=== PATIENT | male | born 1985 | race Caucasian/White ===

== ENCOUNTER 2022-04-01 23:45 | Inpatient (IN) ==
--- NOTE | 2022-04-02 00:43 | Emergency Department Note ---
Impression & Plan Acute UTI, Suicidal ideation Admit to 3 S. ED Provider Note NAME: SHIKHA FUNEZ AGE: 36 SEX: M ARRIVES VIA: Ambulance INFORMANT: Patient ED PROVIDER(S): Helga Murrell DO CHIEF COMPLAINT: Suicidal ideation PLAN: Disposition: Admit to 3 S. Condition: Stable MEDICAL DECISION MAKING: This is a 36-year-old male patient with history of anxiety and depression who called 911 tonight as he was feeling suicidal with a plan to hang himself. The patient was willing to admit himself voluntarily for inpatient psychiatric care. He does have a history of depression and anxiety but has also been feeling somewhat paranoid and delusional. He was noted to be tachycardic on physical exam with some signs of sunburn and slight dehydration. He received a liter of normal saline solution here in the emergency department and was drinking clear liquids. His heart rate came down nicely after fluid. He had evidence of urinary tract infection on urinalysis. He was given a gram of IV Rocephin prior to admission to 3 S. Triage Nursing notes reviewed and agree with them. Prior medical records reviewed Vital Signs: reviewed and remarkable for tachycardia Differential diagnosis: Medication noncompliance, drug abuse, suicidal ideation, mood disorder, thought disorder ER treatment provided: Normal saline bolus IV Rocephin Diagnostics interpreted by me: Laboratory studies: See below HPI: 36/M arrives for evaluation of suicidal ideation. The patient has a history of anxiety and depression and has not been taking his medications. He had thoughts tonight of pain himself in his motel room. Patient has had previous inpatient psychiatric admissions. He was admitted to the [facility] just a couple of months ago and discharged from there on trazodone and Seroquel. He explains that he has not been taking those 2 medications recently and has been feeling delusional with paranoia. Patient feels increasingly depressed specifically about his father being hospitalized in [place] for the past 2 and half weeks with no specific diagnosis and is unable to visit him as he has no transportation. ROS: See above HPI for pertinent positives & negatives. A total of 10 systems reviewed and were otherwise negative. PAST MEDICAL HISTORY:Depression/anxiety PAST SURGICAL HISTORY:See Below FAMILY HISTORY:See Below SOCIAL HISTORY:Patient abuses amphetamines occasionally most recent use was 2 days ago; he works in [employer]. HOME MEDICATIONS:Seroquel and trazodone ALLERGIES:None VITALS:See Below PHYSICAL EXAMINATION: HEENT: Head - normocephalic and atraumatic. Pupils are equal, round, and reactive to light. Extraocular eye muscles are intact, and sclera are anicteri c. Nose - moist nasal mucosa without discharge. Mouth - moist buccal mucosa. Oropharynx is nonerythematous and there is no tonsillar exudate or edema noted. Neck: Supple; no cervical lymphadenopathy Heart: Tachycardic rate and rhythm. There is a normal S1 and S2 with no murmurs, clicks, or gallops appreciated. Lungs: Clear to auscultation bilaterally with no wheezes, rales, or rhonchi. Abdomen: Soft, completely nontender, nondistended, with good bowel sounds. There are no palpable pulsatile masses or hepatosplenomegaly. There is no guarding, rigidity, or rebound noted. Extremities: No evidence of cyanosis, clubbing, or edema. There are easily palpable peripheral pulses. Skin: warm and dry with good turgor and no rashes. Psych: The patient appears slightly depressed with a normal thought process. He does not appear acutely paranoid. He does admit to suicidal thoughts with a plan to hang himself. ED COURSE: Times/Reassessments: 0030: The patient was evaluated in room A5. Complete history and physical was performed. Laboratory studies were drawn as above. The patient was noted to be tachycardic and was bolused with 1 L normal saline solution. He gave a urine specimen which appeared to be infected. The patient was given a gram of IV Rocephin. The patient is felt to be medically cleared. He was evaluated by 3 Miguel Murrell DO Past Med/Surg History Social History Smoking Status: Current some day smoker Preferred Language: [place] Feels Safe at Home: Yes Allergies Allergies Allergy/AdvReac Type Severity Reaction Status Date / Time No Known Allergies Allergy Unverified 04/02/22 00:06 Home Meds Home Medications Medication Instructions Recorded Confirmed Seroquel 04/02/22 Suboxone 04/02/22 trazodone 04/02/22 Results & Data (ED) Vital Signs Vital Signs - 24 hr 04/01/22 23:50 04/02/22 01:30 Temperature 36.8 C Temperature Source Oral Pulse Rate 128 H Pulse Rate [Left Finger] 130 H Pulse Rhythm Regular Pulse Strength Normal Respiratory Rate 17 16 Respiratory Effort / Characteristics Non-Labored Spontaneous Non-Labored Spontaneous Respiratory Depth Normal Normal Respiratory Pattern Regular Blood Pressure 121/95 Blood Pressure [Left Arm] 163/117 H Blood Pressure Mean 103 Blood Pressure Mean [Left Arm] 132 Blood Pressure Position Sitting Pulse Oximetry 99 98 Oxygen Delivery Method Room Air Room Air Sepsis Recent Fever Within 48 Hours No Sepsis New/Unexplained Change in Mental Status N/A Sepsis Action Taken by Nursing No Action Required Laboratory Data Result diagrams: 04/02/22 00:48 04/02/22 00:48 Lab Results 04/01/22 04/01/22 04/01/22 Range/Units 23:56 23:56 23:56 WBC (4.8-10.8) K/uL RBC (4.7-6.1) M/uL Hgb (14.0-18.0) g/dL Hct (42-52) % MCV (80-100) fL MCH (25-34) pg MCHC (32-36) g/dL RDW Std Deviation (36.4-46.3) fL RDW Coeff of Libby (11.5-14.5) % Plt Count (130-400) K/uL MPV (7.4-10.4) fL Immature Gran % (Auto) % Neut % (Auto) % Lymph % (Auto) % Sunflower % (Auto) % Eos % (Auto) % Baso % (Auto) % Neut # (Auto) (1.4-6.5) K/uL Lymph # (Auto) (1.2-3.4) K/uL Sunflower # (Auto) (0.11-0.59) K/uL Eos # (Auto) (0-0.5) K/uL Baso # (Auto) (0-0.2) K/uL Immature Gran # (Auto) (0.00-0.02) K/uL Sodium (136-145) mmol/L Potassium (3.5-5.1) mmol/L Chloride (98-107) mmol/L Carbon Dioxide (21-32) mmol/L Anion Gap (3-11) BUN (6-23) mg/dl Creatinine (0.6-1.4) mg/dl Est Cr Clr Drug Dosing ml/min Est GFR ( Amer) ml/min Est GFR (Non-Af Amer) ml/min BUN/Creatinine Ratio (10-20) Glucose (70-99(Fasting)) mg/dl Calcium (8.5-10.1) mg/dl Total Bilirubin (0.2-1.0) mg/dl AST (13-39) U/L ALT (7-52) U/L Alkaline Phosphatase (34-104) U/L Total Protein (6.0-8.3) gm/dl Albumin (3.4-5.0) gm/dl Globulin (2.5-4.0) gm/dl Albumin/Globulin Ratio (0.9-2) TSH (0.300-4.500) uIu/ml Urine Color Dark Yellow Urine Appearance Turbid A (Clear) Urine pH 5.0 (4.5-7.5) Ur Specific [place] 1.031 H (1.000-1.030) Urine Protein 2+ H (Negative) Urine Glucose (UA) Negative (Negative) Urine Ketones 1+ H (Negative) Urine Blood Negative (Negative) Urine Nitrite Positive A (Negative) Urine Bilirubin 2+ H (Negative) Urine Urobilinogen Negative (Negative) Ur Leukocyte Esterase Trace H (Negative) Urine WBC (Auto) 5-10 H (0-5) /hpf Urine RBC (Auto) 10-30 H (0-4) /hpf U Hyaline Cast (Auto) >30 H (0-5) /lpf U Epithel Cells (Auto) >30 H (0-5) /lpf Urine Bacteria (Auto) 1+ H (Negative) Ur Renal Epithelial Cell Not Reportable Urine Crystals Not Reportable Calcium Oxalate Crystal Present A (None Prsent) Salicylates (3.0-30) mg/dl Urine Opiates Screen Neg (Neg) Ur Methadone, Qual Neg (Neg) Acetaminophen (10-30) ug/ml Urine Barbiturates Neg (Neg) Ur Phencyclidine (PCP) Neg (Neg) U Amphetamin/Meth Scrn Pos H (Neg) MDMA (Ecstasy) Screen Pos H (Neg) U Benzodiazepines Scrn Neg (Neg) Ur Cocaine Metabolite Neg (Neg) U Marijuana (THC) Screen Pos H (Neg) Ethyl Alcohol mg/dL (<10.0) mg/dl SARS-CoV-2, RNA, NAAT NEGATIVE (NEGATIVE) 04/02/22 04/02/22 04/02/22 Range/Units 00:48 00:48 00:48 WBC 8.05 (4.8-10.8) K/uL RBC 5.15 (4.7-6.1) M/uL Hgb 17.3 (14.0-18.0) g/dL Hct 48.0 (42-52) % MCV 93.2 (80-100) fL MCH 33.6 (25-34) pg MCHC 36.0 (32-36) g/dL RDW Std Deviation 49.2 H (36.4-46.3) fL RDW Coeff of Libby 14.5 (11.5-14.5) % Plt Count 244 (130-400) K/uL MPV 9.8 (7.4-10.4) fL Immature Gran % (Auto) 0.1 % Neut % (Auto) 75.9 % Lymph % (Auto) 12.8 % Sunflower % (Auto) 11.2 % Eos % (Auto) 0.0 % Baso % (Auto) 0.0 % Neut # (Auto) 6.11 (1.4-6.5) K/uL Lymph # (Auto) 1.03 L (1.2-3.4) K/uL Sunflower # (Auto) 0.90 H (0.11-0.59) K/uL Eos # (Auto) 0.00 (0-0.5) K/uL Baso # (Auto) 0.00 (0-0.2) K/uL Immature Gran # (Auto) 0.01 (0.00-0.02) K/uL Sodium 137 (136-145) mmol/L Potassium 3.6 (3.5-5.1) mmol/L Chloride 97 L (98-107) mmol/L Carbon Dioxide 28 (21-32) mmol/L Anion Gap 12 H (3-11) BUN 17 (6-23) mg/dl Creatinine 1.56 H (0.6-1.4) mg/dl Est Cr Clr Drug Dosing 63.9 ml/min Est GFR ( Amer) 65.7 ml/min Est GFR (Non-Af Amer) 56.7 ml/min BUN/Creatinine Ratio 10.9 (10-20) Glucose 95 (70-99(Fasting)) mg/dl Calcium 9.9 (8.5-10.1) mg/dl Total Bilirubin 1.0 (0.2-1.0) mg/dl AST 53 H (13-39) U/L ALT 27 (7-52) U/L Alkaline Phosphatase 96 (34-104) U/L Total Protein 8.9 H (6.0-8.3) gm/dl Albumin 5.1 H (3.4-5.0) gm/dl Globulin 3.8 (2.5-4.0) gm/dl Albumin/Globulin Ratio 1.3 (0.9-2) TSH 2.999 (0.300-4.500) uIu/ml Urine Color Urine Appearance (Clear) Urine pH (4.5-7.5) Ur Specific [place] (1.000-1.030) Urine Protein (Negative) Urine Glucose (UA) (Negative) Urine Ketones (Negative) Urine Blood (Negative) Urine Nitrite (Negative) Urine Bilirubin (Negative) Urine Urobilinogen (Negative) Ur Leukocyte Esterase (Negative) Urine WBC (Auto) (0-5) /hpf Urine RBC (Auto) (0-4) /hpf U Hyaline Cast (Auto) (0-5) /lpf U Epithel Cells (Auto) (0-5) /lpf Urine Bacteria (Auto) (Negative) Ur Renal Epithelial Cell Urine Crystals Calcium Oxalate Crystal (None Prsent) Salicylates (3.0-30) mg/dl Urine Opiates Screen (Neg) Ur Methadone, Qual (Neg) Acetaminophen (10-30) ug/ml Urine Barbiturates (Neg) Ur Phencyclidine (PCP) (Neg) U Amphetamin/Meth Scrn (Neg) MDMA (Ecstasy) Screen (Neg) U Benzodiazepines Scrn (Neg) Ur Cocaine Metabolite (Neg) U Marijuana (THC) Screen (Neg) Ethyl Alcohol mg/dL (<10.0) mg/dl SARS-CoV-2, RNA, NAAT (NEGATIVE) 04/02/22 04/02/22 Range/Units 00:48 00:48 WBC (4.8-10.8) K/uL RBC (4.7-6.1) M/uL Hgb (14.0-18.0) g/dL Hct (42-52) % MCV (80-100) fL MCH (25-34) pg MCHC (32-36) g/dL RDW Std Deviation (36.4-46.3) fL RDW Coeff of Libby (11.5-14.5) % Plt Count (130-400) K/uL MPV (7.4-10.4) fL Immature Gran % (Auto) % Neut % (Auto) % Lymph % (Auto) % Sunflower % (Auto) % Eos % (Auto) % Baso % (Auto) % Neut # (Auto) (1.4-6.5) K/uL Lymph # (Auto) (1.2-3.4) K/uL Sunflower # (Auto) (0.11-0.59) K/uL Eos # (Auto) (0-0.5) K/uL Baso # (Auto) (0-0.2) K/uL Immature Gran # (Auto) (0.00-0.02) K/uL Sodium (136-145) mmol/L Potassium (3.5-5.1) mmol/L Chloride (98-107) mmol/L Carbon Dioxide (21-32) mmol/L Anion Gap (3-11) BUN (6-23) mg/dl Creatinine (0.6-1.4) mg/dl Est Cr Clr Drug Dosing ml/min Est GFR ( Amer) ml/min Est GFR (Non-Af Amer) ml/min BUN/Creatinine Ratio (10-20) Glucose (70-99(Fasting)) mg/dl Calcium (8.5-10.1) mg/dl Total Bilirubin (0.2-1.0) mg/dl AST (13-39) U/L ALT (7-52) U/L Alkaline Phosphatase (34-104) U/L Total Protein (6.0-8.3) gm/dl Albumin (3.4-5.0) gm/dl Globulin (2.5-4.0) gm/dl Albumin/Globulin Ratio (0.9-2) TSH (0.300-4.500) uIu/ml Urine Color Urine Appearance (Clear) Urine pH (4.5-7.5) Ur Specific [place] (1.000-1.030) Urine Protein (Negative) Urine Glucose (UA) (Negative) Urine Ketones (Negative) Urine Blood (Negative) Urine Nitrite (Negative) Urine Bilirubin (Negative) Urine Urobilinogen (Negative) Ur Leukocyte Esterase (Negative) Urine WBC (Auto) (0-5) /hpf Urine RBC (Auto) (0-4) /hpf U Hyaline Cast (Auto) (0-5) /lpf U Epithel Cells (Auto) (0-5) /lpf Urine Bacteria (Auto) (Negative) Ur Renal Epithelial Cell Urine Crystals Calcium Oxalate Crystal (None Prsent) Salicylates < 3.0 L (3.0-30) mg/dl Urine Opiates Screen (Neg) Ur Methadone, Qual (Neg) Acetaminophen < 3 L (10-30) ug/ml Urine Barbiturates (Neg) Ur Phencyclidine (PCP) (Neg) U Amphetamin/Meth Scrn (Neg) MDMA (Ecstasy) Screen (Neg) U Benzodiazepines Scrn (Neg) Ur Cocaine Metabolite (Neg) U Marijuana (THC) Screen (Neg) Ethyl Alcohol mg/dL < 10.0 (<10.0) mg/dl SARS-CoV-2, RNA, NAAT (NEGATIVE) Administered Medications Discontinued Medications Sodium Chloride (Nss 1000ml) 1,000 mls @ 999 mls/hr IV .[id number] ONE Stop: 04/02/22 02:58 Last Infusion: 04/02/22 03:52 Dose: 0 mls/hr Documented by: [id number] Admin: 04/02/22 02:29 Dose: 999 mls/hr Documented by: [id number] Ceftriaxone Sodium (Rocephin) 1,000 mg in 50 mls @ 100 mls/hr IV NOW STA Stop: 04/02/22 02:27 Last Infusion: 04/02/22 03:01 Dose: 0 mls/hr Documented by: [id number] Admin: 04/02/22 02:29 Dose: 100 mls/hr Documented by: [id number] Discharge Plan Visit Data Chief Complaint: Mental Health Evaluation Stated Complaint: MENTAL HEALTH EVAL/SUICIDAL IDEATION ED Provider: Helga Murrell Discharge Problem: Acute UTI, Suicidal ideation
[2022-04-02 00:45] LABS: Appearance Urine Turbid (Clear); Blood Urine Negative (Negative); Color Urine Dark Yellow; Epithelial Cell Urine Auto >30 /lpf (0-5); Glucose Urine UA Negative (Negative); Ketones Urine 1+ (Negative); Leukocyte Esterase Urine Trace (Negative); Nitrite Urine Positive (Negative); Protein Urine 2+ (Negative); Specific Gravity Urine 1.031 (1.000-1.030); Urobilinogen Urine Negative (Negative)
[2022-04-02 00:55] LABS: Bilirubin Urine 2+ (Negative)
[2022-04-02 01:03] LABS: Calcium Oxalate Crystals Urine Present (None Prsent); Cast Urine Automated >30 /lpf (0-5)
[2022-04-02 01:04] LABS: Bacteria Urine Automated 1+ (Negative)
[2022-04-02 01:04] LABS: Hemoglobin 17.3 g/dL (14.0-18.0); Immature Granulocytes # (auto) 0.01 K/uL (0.00-0.02); Immature Granulocytes % (auto) 0.1 %; Lymphocytes # (auto) 1.03 K/uL (1.2-3.4); Lymphocytes % (auto) 12.8 %; Mean Corpuscular Hemoglobin 33.6 pg (25-34); Mean Corpuscular Volume 93.2 fL (80-100); Mean Platelet Volume 9.8 fL (7.4-10.4); Monocytes % (auto) 11.2 %; Neutrophils # (auto) 6.11 K/uL (1.4-6.5); Neutrophils % (auto) 75.9 %; Platelet Count 244 K/uL (130-400); RDW Coefficient of Variation 14.5 % (11.5-14.5); RDW Standard Deviation 49.2 fL (36.4-46.3); Red Blood Count 5.15 M/uL (4.7-6.1); White Blood Count 8.05 K/uL (4.8-10.8)
[2022-04-02 01:16] LABS: Amphetamines+Metham, Urine Pos (Neg); Barbiturates, Urine Neg (Neg); Benzodiazepine, Urine Neg (Neg); Cocaine, Urine Neg (Neg); MDMA (Ecstacy), Urine Pos (Neg); Methadone, Urine Neg (Neg); Opiate, Urine Neg (Neg); Phencyclidine, Urine Neg (Neg)
[2022-04-02 01:20] LABS: Albumin Globulin Ratio 1.3 (0.9-2); Albumin Level 5.1 gm/dl (3.4-5.0); BUN Creatinine Ratio 10.9 (10-20); Calcium 9.9 mg/dl (8.5-10.1); Creatinine Clr Calc Pharmacy 63.9 ml/min; Est GFR (African American) 65.7 ml/min; Est GFR (Non-African American) 56.7 ml/min; Globulin 3.8 gm/dl (2.5-4.0); Potassium 3.6 mmol/L (3.5-5.1); Total Protein 8.9 gm/dl (6.0-8.3)
[2022-04-02 01:21] LABS: Acetaminophen < 3 ug/ml (10-30); Salicylate < 3.0 mg/dl (3.0-30)
[2022-04-02] MEDS ORDERED: cefTRIAXone SODIUM 1,000 MG/50 ML BAG IV STA (01:58)
[2022-04-02] MEDS ORDERED: SODIUM CHLORIDE 0.9% 1000ML 1,000 ML IV ONE (01:58)
[2022-04-02] MEDS ORDERED: LORazepam 1 MG TAB PO PRN (05:28)
[2022-04-02] MEDS ORDERED: OLANZapine 5 MG TABLET PO PRN (05:30)
[2022-04-02] MEDS ORDERED: hydrOXYzine HCl 25 MG TAB PO PRN (07:12)
[2022-04-02] MEDS ORDERED: SODIUM CHLORIDE 0.65% NA SOLN 45 ML (OCEAN) PRN (07:12)
[2022-04-02] MEDS ORDERED: BISMUTH SUBSALICYLATE LIQD 236 ML PO PRN (07:12)
[2022-04-02] MEDS ORDERED: ACETAMINOPHEN 325 MG TAB PO PRN (07:12)
[2022-04-02] MEDS ORDERED: ALUMINUM/MAGNESIUM SUSP 30 ML UDC PO PRN (07:12)
[2022-04-02] MEDS ORDERED: MAGNESIUM HYDROXIDE SUSP 30 ML UDC PO PRN (07:12)
--- NOTE | 2022-04-02 08:45 | History & Physical ---
Date of Service April 02, 2022 Impression / Recommendations Impression The patient is a 36 year old man with a history of anxiety, depression, BPD with multiple prior suicide attempts (last 9 years ago) and polysubstance use disorder (methamphetamine, suboxone, alcohol) who was admitted for SI with plan and psychosis. Diagnostically consistent with MDD with anxious features and substance-induced mood symptoms and substance-induced psychosis given UDS is positive for methamphetamine (confirmation screening pending but hasn't been taking any medications and he confirms recent relapse). BPAD mixed episode or MDD with psychotic features very unlikely given already showing signs of psy chosis resolution since ED presentation. No evidence for acute ian. The patient is deemed unstable and requires psychiatric hospitalization for diagnostic clarification, safety and stabilization, medication management and development of further coping skills. Discussed medication treatment options in detail. Discussed risks, benefits and alternatives including SSRIs and trazodone. Patient would like to start and consented to sertraline and trazodone for depression, anxiety and insomnia. Reviewed side effects including but not limited to: GI, ORDAZ, sexual side effects, and counseled on black box warning of potential for emergence of or increased SI and need to let staff know should this occur or should they feel unsafe. Also discussed importance of seeking emergency care following discharge if this side effect occurs in the future. The patient's audit score and use history suggests problematic substance use. Brief intervention was offered and accepted. Intervention was greater than 5 minutes in length and included assessing readiness to quit, advice on how to reduce or abstain and to set a specific goal for this hospitalization. canvas worker apprentice will also assist in anticipating barriers to reducing or abstaining from substance use and in problem-solving for solutions to those problems while arranging for referral to appropriate treatment. The patient is in contemplative stage with regards to transtheoretical model of change. The patient is advised to decrease consumption due to depressant effects and risk of interaction with prescription medications. The patient agreed to try to stop drinking and begin treatment with a suboxone clinic and will be provided with recovery materials to continue to educate self on how to cope with their condition without using substances. Discussed that most significant modifiable risk factor for treating psychosis and mood symptoms and reducing acute and chronic risk of self-harm is substance use treatment. Recommended residential treatment which he declines at this time. He will consider option for intensive outpatient treatment or dual diagnosis therapy and NA/AA. He declines MAT for alcohol use at this time-reviewed acamprosate could be an option, naltrexone contraindicated as he uses suboxone intermittently. Encourage re-establishment with suboxone MAT clinic which he agrees to. (1) Mixed anxiety depressive disorder: (2) Suicidal ideation: (3) Substance induced mood disorder: (4) Substance-induced psychotic disorder: (5) Acute UTI: (6) Opioid use disorder: (7) Alcohol use disorder, moderate, dependence: (8) Methamphetamine use disorder, mild: 04/02/22: The patient was admitted to the [facility] ([facility] mental [facility] unit) on q15 min checks (behavioral with suicide precautions) for safety. The patient will participate in group, recreational, and milieu therapies and will be offered additional individual and family sessions as clinically appropriate. -AWSS with thiamine and folic acid -Monitor withdrawal using COWS (Clinical Opiate Withdrawal Scale). Clonidine: 0.1 mg po q6h prn (hold for SBP<100). Symptomatic treatment: dicyclomine 20mg q6h prn abdominal cramps, loperamide 2mg q6h prn diarrhea, ibuprofen 600 mg q6h prn pain, hydroxyzine 25mg q4h prn anxiety -Start sertraline 25 mg qd -Start trazodone 50mg qhs prn -Macrobid 100mg BID for UTI Inventory Assets Strengths: motivated to get help, relationship with father, working Needs: additional coping skills, substance use treatment, outpatient services Suicide Risk Level Suicide Risk Level: High (q15 min suicide checks) Suicide Risk Level Comments: High-Moderate acute risk on q15 minute checks as he had SI with plan prior to admission and hx of multiple prior attempts but feels safe in the hospital, has current SI but denies any plan nor intent, denies AH, and is able to safety contract on the unit,hasreasonable insight and judgment, demonstrating be havioral regulation, and theyfeel they can alert nursing should thoughts of SI re-occuror intensify to the point that they feel unable to remain safe without additional support. 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 Chief Complaint "I'm really worried about my dad". History of Present Illness Yoni presents for psychiatric admission for worsening anxiety, intensifying SI with a plan to hang himself and new auditory hallucinations in the context of multiple psychosocial stressors including homelessness, his father being hospitalized for the last month, and relapse of methamphetamine use. He called 911 was brought to the ED. He received treatment in the ED for a UTI and for dehydration and sunburn. He relapsed on methamphetamine two days ago, after about 4-5 months of sobriety, and takes suboxone, 16mg, that he buys recreationally from a friend as frequently as he can get it (has not used any other opioids or heroin in >1 year) but UDS was also positive for MDMA. He states this could have been mixed with the methamphetamine that he took. He views alcohol as his biggest substance use issue especially since it causes him to end up using other substances and to make poor decisions. He drinks on average a 6pack of beer and often up to 1/5 of whiskey most nights. He is currently living in a motel and is on pre-trial probation for a DUI. Last night on arrival to the ED he reported auditory hallucinations of voices of ghosts and thought he had superhuman hearing and was responding to internal stimuli. Today he denies any auditory hallucinations and agrees that this can occur when he uses substances but is otherwise atypical for him. States he can communicate without words with his grandmother, as he believes she can sense his emotions, who a few years ago and with whom he had been very close. No other history of psychosis in the past. He describes feeling more depressed but struggles to describe this and how it impacts him though can note sleep and appetite changes and increased irritability with low mood. He denies hopelessness, helplessness, anhedonia. Feels his biggest concern recently has been worsening anxiety with heart racing and increased worrying as well as intensifying SI over the last week. Identifies family as a significant deterrent and the reason he wanted to get help. Today he continues to feel anxious but feels the SI has "volume is down a bit" and denies any plans nor intent in the hospital setting. Psychiatric ROS notable for denial of current or past symptoms of ian (had decreased sleep during times when using substances but never during periods of sobriety), nor psychosis outside of periods of active substance use, nor aggression nor self-harm nor trauma/PTSD. Past Psychiatric History Current Psychiatric Diagnosis: Borderline Personality; Bipolar; Anxiety; depression Outpatient Services: none Previous Psych Admissions: [facility] in Nov 2021 , previously at [facility] in [facility] Do You Have Access To A Gun?: No History of Previous Suicide Attempt: Yes (5-6 times, last attempt was 9 years ago all via overdose ) Past Medication Trials: seroquel, trazodone, mirtazapine; cannot recall any past SSRI nor mood stabilizer trials, has been prescribed suboxone in the past Past Head Trauma/Neuro History History of Concussion/Seizure: No Allergies Allergy/AdvReac Type Severity Reaction Status Date / Time No Known Allergies Allergy Unverified 04/02/22 00:06 Home Medications Medication Instructions Recorded Confirmed Type Seroquel 04/02/22 History trazodone 04/02/22 History Family History Family History of: Depression, Anxiety and Suicide Attempts Family Mental Health History Comment: Maternal side - MH Substance/Alcohol - both brother and sister- attempted suicide both during periods of substance use Alcohol History Hx of Alcohol Use Over the Past 12 Months: Yes (6 pack - five days week) AUDIT Total Score: 31 Smoking Use Have You Smoked or Used Tobacco Products in the Last 30 Days: Yes tobacco type: smokeless tobacco Smoking Status: Unknown if ever smoked Smoking packs per day: 0 Substance History Hx of Prescription Med Misuse Over the Past 12 Months: Yes (Suboxone from street) Hx of Over the Counter Med Misuse Over the Past 12 Months: No Hx of Inhalent Misuse Over the Past 12 Months: No Hx of Organic Substance Use Over the Past 12 Months: Yes (+THC - uses daily, 1gram/week) Hx of Illegal Substances/Street Drug Use Over Past 12 Months: No Problems as a Result of Past Substance Use: Arrested and Life out of Control Problems as a Result of Past Substance Use Comments: DUI x2 UDS positive for amphetamine, MDMA, THC; confirmation pending Personal History Living Arrangements: Hotel Childhood: Grew up in [place], biological mother lives in [place] and he was raised primarily by his father and step-mother, remains close with his parents and siblings Highest Grade Completed: G.E.D. 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) Marital Status: Single Number Of Children: 0 Current Legal Problems: Yes (on probation for prior DUIs) Hx Legal Problems: Yes Hx Traumatic Life Events: No Patient History Medical History (Updated 04/02/22 @ 13:25 by Aure Alas MD) Alcohol use disorder, moderate, dependence Depression Opioid use disorder Other and unspecified reactive psychosis Polysubstance (including opioids) dependence, daily use Social History Smoking Status: Unknown if ever smoked Preferred Language: Belarusian Communication Ability: Effective Wrecker Driver Required: No Feels Safe at Home: Yes Assistive Devices: None Review of Systems Review of Systems: All systems reviewed & are unremarkable except as noted in HPI & below Physical Exam Psychiatric: Orientation: alert and oriented x 3 Apperance: appropriately dressed and appropriately groomed Eye Contact: good eye contact Motor Behavior: steady gait and station and no abnormal motor movements Speech: normal rate/rhythm/volume of speech Affect: + constricted affect Mood: + depressed mood and + anxious mood Thought Process: + concrete thought process Thought Content: reality based without delusions and + delusions (possible related to communication with grandmother vs grief coping mechanis) Suicidal Thoughts: denies suicidal plan and denies suicidal intent; + reports suicidal thoughts (ongoing SI but no intent nor plan and feels safe in the hospital) Homicidal Thoughts: denies homicidal thoughts Hallucinations: no auditory hallucinations and no visual hallucinations Cognition: recent memory grossly intact, remote memory grossly intact and language grossly intact; + attention not intact Estimated Intelligence: consistent with education level Insight: + limited insight Judgement: + limited judgement Vital Signs (Past 24 Hours): Last Vital Signs Temp 37.4 C 04/02/22 06:04 Pulse 123 H 04/02/22 06:04 Resp 18 04/02/22 06:04 BP 146/100 H 04/02/22 06:04 Pulse Ox 99 04/02/22 03:22 Exam Statement: A physical exam was performed in the ED by Dr. Murrell for the purposes of medical clearance. I accept that physical as correct and adequate for the purposes of the inpatient physical exam. Results & Data [facility] Laboratory Results Laboratory Results - last 24 hr 04/01/22 04/01/22 04/01/22 23:56 23:56 23:56 WBC RBC Hgb Hct MCV MCH MCHC RDW Std Deviation RDW Coeff of Libby Plt Count MPV Immature Gran % (Auto) Neut % (Auto) Lymph % (Auto) [place] % (Auto) Eos % (Auto) Baso % (Auto) Neut # (Auto) Lymph # (Auto) [place] # (Auto) Eos # (Auto) Baso # (Auto) Immature Gran # (Auto) Sodium Potassium Chloride Carbon Dioxide Anion Gap BUN Creatinine Est Cr Clr Drug Dosing Est GFR ( Amer) Est GFR (Non-Af Amer) BUN/Creatinine Ratio Glucose Calcium Total Bilirubin AST ALT Alkaline Phosphatase Total Protein Albumin Globulin Albumin/Globulin Ratio TSH Urine Color Dark Yellow Urine Appearance Turbid A Urine pH 5.0 Ur Specific [place] 1.031 H Urine Protein 2+ H Urine Glucose (UA) Negative Urine Ketones 1+ H Urine Blood Negative Urine Nitrite Positive A Urine Bilirubin 2+ H Urine Urobilinogen Negative Ur Leukocyte Esterase Trace H Urine WBC (Auto) 5-10 H Urine RBC (Auto) 10-30 H U Hyaline Cast (Auto) >30 H U Epithel Cells (Auto) >30 H Urine Bacteria (Auto) 1+ H Ur Renal Epithelial Cell Not Reportable Urine Crystals Not Reportable Calcium Oxalate Crystal Present A Salicylates Urine Opiates Screen Neg Ur Methadone, Qual Neg Acetaminophen Urine Barbiturates Neg Ur Phencyclidine (PCP) Neg U Amphetamines Confirm U Amphetamin/Meth Scrn Pos H U Methamphetamin Confrm Urine MDEA MDMA (Ecstasy) Screen Pos H MDMA Urine MDMA U Benzodiazepines Scrn Neg Ur Cocaine Metabolite Neg U Marijuana (THC) Screen Pos H U Marijuana THC Carboxy Drug Screen Comment Ethyl Alcohol mg/dL SARS-CoV-2, RNA, NAAT NEGATIVE 04/01/22 04/02/22 04/02/22 23:56 00:48 00:48 WBC 8.05 RBC 5.15 Hgb 17.3 Hct 48.0 MCV 93.2 MCH 33.6 MCHC 36.0 RDW Std Deviation 49.2 H RDW Coeff of Libby 14.5 Plt Count 244 MPV 9.8 Immature Gran % (Auto) 0.1 Neut % (Auto) 75.9 Lymph % (Auto) 12.8 [place] % (Auto) 11.2 Eos % (Auto) 0.0 Baso % (Auto) 0.0 Neut # (Auto) 6.11 Lymph # (Auto) 1.03 L [place] # (Auto) 0.90 H Eos # (Auto) 0.00 Baso # (Auto) 0.00 Immature Gran # (Auto) 0.01 Sodium 137 Potassium 3.6 Chloride 97 L Carbon Dioxide 28 Anion Gap 12 H BUN 17 Creatinine 1.56 H Est Cr Clr Drug Dosing 63.9 Est GFR ( Amer) 65.7 Est GFR (Non-Af Amer) 56.7 BUN/Creatinine Ratio 10.9 Glucose 95 Calcium 9.9 Total Bilirubin 1.0 AST 53 H ALT 27 Alkaline Phosphatase 96 Total Protein 8.9 H Albumin 5.1 H Globulin 3.8 Albumin/Globulin Ratio 1.3 TSH Urine Color Urine Appearance Urine pH Ur Specific [place] Urine Protein Urine Glucose (UA) Urine Ketones Urine Blood Urine Nitrite Urine Bilirubin Urine Urobilinogen Ur Leukocyte Esterase Urine WBC (Auto) Urine RBC (Auto) U Hyaline Cast (Auto) U Epithel Cells (Auto) Urine Bacteria (Auto) Ur Renal Epithelial Cell Urine Crystals Calcium Oxalate Crystal Salicylates Urine Opiates Screen Ur Methadone, Qual Acetaminophen Urine Barbiturates Ur Phencyclidine (PCP) U Amphetamines Confirm Pending U Amphetamin/Meth Scrn U Methamphetamin Confrm Pending Urine MDEA Pending MDMA (Ecstasy) Screen MDMA Pending Urine MDMA Pending U Benzodiazepines Scrn Ur Cocaine Metabolite U Marijuana (THC) Screen U Marijuana THC Carboxy Pending Drug Screen Comment Pending Ethyl Alcohol mg/dL SARS-CoV-2, RNA, NAAT 04/02/22 04/02/22 04/02/22 00:48 00:48 00:48 WBC RBC Hgb Hct MCV MCH MCHC RDW Std Deviation RDW Coeff of Libby Plt Count MPV Immature Gran % (Auto) Neut % (Auto) Lymph % (Auto) [place] % (Auto) Eos % (Auto) Baso % (Auto) Neut # (Auto) Lymph # (Auto) [place] # (Auto) Eos # (Auto) Baso # (Auto) Immature Gran # (Auto) Sodium Potassium Chloride Carbon Dioxide Anion Gap BUN Creatinine Est Cr Clr Drug Dosing Est GFR ( Amer) Est GFR (Non-Af Amer) BUN/Creatinine Ratio Glucose Calcium Total Bilirubin AST ALT Alkaline Phosphatase Total Protein Albumin Globulin Albumin/Globulin Ratio TSH 2.999 Urine Color Urine Appearance Urine pH Ur Specific [place] Urine Protein Urine Glucose (UA) Urine Ketones Urine Blood Urine Nitrite Urine Bilirubin Urine Urobilinogen Ur Leukocyte Esterase Urine WBC (Auto) Urine RBC (Auto) U Hyaline Cast (Auto) U Epithel Cells (Auto) Urine Bacteria (Auto) Ur Renal Epithelial Cell Urine Crystals Calcium Oxalate Crystal Salicylates < 3.0 L Urine Opiates Screen Ur Methadone, Qual Acetaminophen < 3 L Urine Barbiturates Ur Phencyclidine (PCP) U Amphetamines Confirm U Amphetamin/Meth Scrn U Methamphetamin Confrm Urine MDEA MDMA (Ecstasy) Screen MDMA Urine MDMA U Benzodiazepines Scrn Ur Cocaine Metabolite U Marijuana (THC) Screen U Marijuana THC Carboxy Drug Screen Comment Ethyl Alcohol mg/dL < 10.0 SARS-CoV-2, RNA, NAAT Current Inpatient Medications Current Inpatient Medications: Current Inpatient Medications Acetaminophen (Acetaminophen 325 Mg Tab) 650 mg PO Q4H PRN PRN Reason: Headache or Minor Fever Stop: 05/02/22 07:11 Al Hydrox/Mg Hydrox/Simethicone (Aluminum/Magnesium Susp 30 Ml Udc) 30 ml PO Q4H PRN PRN Reason: GI Upset Stop: 05/02/22 07:11 Bismuth Subsalicylate (Bismuth Subsalicylate Liqd 236 Ml) 15 ml PO PRN PRN PRN Reason: Loose Stool Stop: 05/02/22 07:11 Hydroxyzine HCl (Hydroxyzine Hcl 25 Mg Tab) 50 mg PO HSZ PRN PRN Reason: Insomnia Stop: 05/02/22 07:11 Hydroxyzine HCl (Hydroxyzine Hcl 25 Mg Tab) 25 mg PO Q4H PRN PRN Reason: Anxiety Stop: 05/02/22 07:11 Magnesium Hydroxide (Magnesium Hydroxide Susp 30 Ml Udc) 30 ml PO DAILY PRN PRN Reason: Constipation Stop: 05/02/22 07:11 Olanzapine (Olanzapine 5 Mg Tablet) 5 mg PO HS PRN PRN Reason: Anxiety/Agitation Stop: 05/02/22 21:59 Sodium Chloride (Sodium Chloride 0.65% Na Soln 45 Ml ([place])) 1 - 2 sprays NA PRN PRN PRN Reason: Nasal Dryness/Congestion Stop: 05/02/22 07:11
[2022-04-02] MEDS: LORazepam 1 MG TAB PO PRN ×3 (12:40→22:32)
[2022-04-02] MEDS: FOLIC ACID 1 MG TAB PO SCH (12:41)
[2022-04-02] MEDS: THIAMINE HCL 100 MG TAB PO SCH (12:41)
[2022-04-02] MEDS ORDERED: cloNIDine HCL 0.1 MG TAB PO PRN (13:16)
[2022-04-02] MEDS ORDERED: LOPERAMIDE HCL 2 MG CAP PO PRN (13:17)
[2022-04-02] MEDS ORDERED: DICYCLOMINE HCL 20 MG TAB PO PRN (13:17)
[2022-04-02] MEDS ORDERED: IBUPROFEN 600 MG TAB PO PRN (13:17)
[2022-04-02] MEDS ORDERED: risperiDONE 0.5 MG TABLET PO PRN (13:49)
[2022-04-02] MEDS: SERTRALINE HCL 50 MG TABLET PO SCH (14:01)
[2022-04-02] MEDS: NICOTINE POLACRILEX 2 MG GUM MT PRN ×2 (18:49→21:01)
[2022-04-02] MEDS: hydrOXYzine HCl 25 MG TAB PO PRN (20:47)
[2022-04-02] MEDS: NITROFURANTOIN MONOHYDRATE 100 MG CAP PO SCH (22:18)
[2022-04-02] MEDS: traZODone HCL 50 MG TAB PO PRN (22:32)
[2022-04-03] MEDS: NICOTINE 21 MG/24 HR TDSY TD SCH (09:04)
[2022-04-03] MEDS: FOLIC ACID 1 MG TAB PO SCH (09:05)
[2022-04-03] MEDS: THIAMINE HCL 100 MG TAB PO SCH (09:05)
[2022-04-03] MEDS: NITROFURANTOIN MONOHYDRATE 100 MG CAP PO SCH ×2 (09:05→21:13)
[2022-04-03] MEDS: SERTRALINE HCL 50 MG TABLET PO SCH (09:05)
[2022-04-03] MEDS ORDERED: haloperidoL 5 MG TAB PO STA (09:22)
[2022-04-03] MEDS ORDERED: HALOPERIDOL 5 MG/2.5 ML UDP PO PRN (09:22)
[2022-04-03] MEDS ORDERED: LORazepam 1 MG TAB PO STA (09:23)
[2022-04-03] MEDS ORDERED: BENZTROPINE MESYLATE 1 MG TAB PO PRN (09:24)
[2022-04-03] MEDS ORDERED: LORazepam 1 MG TAB PO PRN ×2 (09:24→11:13)
[2022-04-03] MEDS ORDERED: GABAPENTIN 1200MG ALCOHOL WITHDRAWAL LOAD PO STA (10:35)
[2022-04-03] MEDS: LORazepam 1 MG TAB PO PRN (10:48)
[2022-04-03] MEDS: NICOTINE POLACRILEX 2 MG GUM MT PRN ×2 (10:48→21:25)
[2022-04-03] MEDS ORDERED: GABAPENTIN 600 MG TAB PO ONE (12:00)
--- NOTE | 2022-04-03 12:53 | Psychiatric Progress Note ---
Date of Service April 03, 2022 Impression / Recommendations Impression The patient is a 36 year old man with a history of anxiety, depression, BPD with multiple prior suicide attempts (last 9 years ago) and polysubstance use disorder (methamphetamine, suboxone, alcohol) who was admitted for SI with plan and psychosis. Diagnostically consistent with MDD with anxious features and substance-induced mood symptoms and substance-induced psychosis given UDS is positive for methamphetamine (confirmation screening pending but hasn't been taking any medications and he confirms recent relapse). BPAD mixed episode or MDD with psychotic features very unlikely given already showing signs of ps ychosis resolution since ED presentation. No evidence for acute ian. The patient is deemed unstable and requires psychiatric hospitalization for diagnostic clarification, safety and stabilization, medication management and development of further coping skills. As per Dr. Alas above. 04/03/22: evidence of lombardi and ongoing withdrawal, presentation consistent with substance related psychosis, patient at risk for worsening withdrawal given reported use of 6-12 beers per day prior to admission. Agreed to neurontin loading. (1) Mixed anxiety depressive disorder: (2) Suicidal ideation: (3) Substance induced mood disorder: (4) Substance-induced psychotic disorder: (5) Acute UTI: (6) Opioid use disorder: (7) Alcohol use disorder, moderate, dependence: (8) Methamphetamine use disorder, mild: 04/03/22: Neurontin loading. AWSS procotol. Haldol 5 mg and Ativan 1 mg po q4 hr. Cogentin 1 mg q6 prn. MNPR. 04/02/22: The patient was admitted to the [facility] ([facility] mental health unit) on q15 min checks (behavioral with suicide precautions) for safety. The patient will participate in group, recreational, and milieu therapies and will be offered additional individual and family sessions as clinically appropriate. -AWSS with thiamine and folic acid -Monitor withdrawal using COWS (Clinical Opiate Withdrawal Scale). Clonidine: 0.1 mg po q6h prn (hold for SBP<100). Symptomatic treatment: dicyclomine 20mg q6h prn abdominal cramps, loperamide 2mg q6h prn diarrhea, ibuprofen 600 mg q6h prn pain, hydroxyzine 25mg q4h prn anxiety -Start sertraline 25 mg qd -Start trazodone 50mg qhs prn -Macrobid 100mg BID for UTI Inventory Assets Strengths: motivated to get help, relationship with father, working Needs: additional coping skills, substance use treatment, outpatient services Suicide Risk Level Suicide Risk Level: High (q15 min suicide checks) Suicide Risk Level Comments: High-Moderate acute risk on q15 minute checks as he had SI with plan prior to admission and hx of multiple prior attempts but feels safe in the hospital, has current SI but denies any plan nor intent, denies AH, and is able to safety contract on the unit,hasreasonable insight and judgment, demonstrating behavioral regulation, and theyfeel they can alert nursing should thoughts of SI re-occuror intensify to the point that they feel unable to remain safe without additional support. 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 Chief Complaint "How much Ativan can I get?". Review of Systems Sleep Information Total Hours of Sleep: 6.25 Meal Information Percent Meal Consumed - Breakfast: 100 Percent Meal Consumed - Lunch: 100 Subjective Subjective Patient was seen & assessed and interval progress reviewed with nursing and social work. Patient has received prn Zyprexa for periods of talking to self/responding to internal stimuli. He is focussed on obtaining suboxone as an outpatient but doesn't have ID which would be required to enroll in a program. He was in his room pacing/yelling/swearing to voices and I acutely ordered 5 mg Haldol and 1 mg Ativan after which he calmed enough to attend group briefly without being disrupted. Requiring the HERACLIO and MNPR. BP and P vary, did score on AWSS. Physical Exam Psychiatric Orientation: alert Apperance: + disheveled Eye Contact: + fair eye contact Motor Behavior: steady gait and station and no abnormal motor movements Speech: normal rate/rhythm/volume of speech Affect: + anxious affect Mood: + anxious mood Thought Process: + concrete thought process Thought Content: no delusions Suicidal Thoughts: denies suicidal thoughts, denies suicidal plan and denies suicidal intent Homicidal Thoughts: denies homicidal thoughts Hallucinations: + auditory hallucinations (won't elaborate); no visual hallucinations Cognition: language grossly intact; + attention not intact Estimated Intelligence: consistent with education level Insight: + limited insight Judgement: + limited judgement Vital Signs (Past 24 Hours) Last Vital Signs Temp 37.1 C 04/03/22 10:45 Pulse 106 H 04/03/22 10:45 Resp 18 04/03/22 10:45 BP 149/79 H 04/03/22 10:45 Pulse Ox 98 04/02/22 14:54 Results & Data ([facility]) Current Inpatient Medications Current Inpatient Medications: Current Inpatient Medications Acetaminophen (Acetaminophen 325 Mg Tab) 650 mg PO Q4H PRN PRN Reason: Headache or Minor Fever Stop: 05/02/22 07:11 Last Admin: 04/02/22 15:27 Dose: 650 mg Documented by: Al Hydrox/Mg Hydrox/Simethicone (Aluminum/Magnesium Susp 30 Ml Udc) 30 ml PO Q4H PRN PRN Reason: GI Upset Stop: 05/02/22 07:11 Last Admin: 04/03/22 10:48 Dose: 30 ml Documented by: Benztropine Mesylate (Benztropine Mesylate 1 Mg Tab) 1 mg PO Q6 PRN PRN Reason: dystonia/thick tongue Stop: 05/03/22 11:59 Bismuth Subsalicylate (Bismuth Subsalicylate Liqd 236 Ml) 15 ml PO PRN PRN PRN Reason: Loose Stool Stop: 05/02/22 07:11 Clonidine HCl (Clonidine Hcl 0.1 Mg Tab) 0.1 mg PO Q6H PRN PRN Reason: withdrawal Stop: 04/05/22 22:00 Dicyclomine HCl (Dicyclomine Hcl 20 Mg Tab) 20 mg PO Q6H PRN PRN Reason: abdominal cramps Stop: 05/02/22 13:29 Folic Acid (Folic Acid 1 Mg Tab) 1 mg PO QAM AMANDA Stop: 05/02/22 10:59 Last Admin: 04/03/22 09:05 Dose: 1 mg Documented by: Gabapentin (Gabapentin 600 Mg Tab) 600 mg PO Q6H [facility] Stop: 04/04/22 00:01 Gabapentin (Gabapentin 600 Mg Tab) 600 mg PO Q8H [facility] Stop: 04/05/22 00:01 Gabapentin (Gabapentin 600 Mg Tab) 600 mg PO Q12H [facility] Stop: 04/06/22 00:01 Gabapentin (Gabapentin 600 Mg Tab) 600 mg PO Q24H [facility]AN[facility] Stop: 04/07/22 00:01 Haloperidol (Haloperidol 5 Mg/2.5 Ml Udp) 5 mg PO Q4 PRN PRN Reason: Anxiety Stop: 05/03/22 09:21 Hydroxyzine HCl (Hydroxyzine Hcl 25 Mg Tab) 50 mg PO HSZ PRN PRN Reason: Insomnia Stop: 05/02/22 07:11 Hydroxyzine HCl (Hydroxyzine Hcl 25 Mg Tab) 25 mg PO Q4H PRN PRN Reason: Anxiety Stop: 05/02/22 07:11 Last Admin: 04/02/22 20:47 Dose: 25 mg Documented by: Ibuprofen (Ibuprofen 600 Mg Tab) 600 mg PO Q6H PRN PRN Reason: Pain Stop: 05/02/22 13:16 Last Admin: 04/02/22 14:58 Dose: 600 mg Documented by: Loperamide HCl (Loperamide Hcl 2 Mg Cap) 2 mg PO Q6H PRN PRN Reason: Diarrhea Stop: 05/02/22 13:16 Lorazepam (Lorazepam 1 Mg Tab) 1 - 3 mg PO UD PRN; Protocol PRN Reason: EtoH Withdrawal AWSS 6-10+ Stop: 05/02/22 10:47 Last Admin: 04/03/22 10:48 Dose: 1 mg Documented by: Lorazepam (Lorazepam 1 Mg Tab) 1 mg PO Q4 PRN PRN Reason: Anxiety/Agitation Stop: 05/03/22 09:23 Magnesium Hydroxide (Magnesium Hydroxide Susp 30 Ml Udc) 30 ml PO DAILY PRN PRN Reason: Constipation Stop: 05/02/22 07:11 Miscellaneous (Remove Nicoderm Patch) 1 ea N/A DAILY@0859 [facility] Stop: 05/03/22 08:58 Last Admin: 04/03/22 09:05 Dose: Not Given Documented by: Nicotine (Nicotine 21 Mg/24 Hr Tdsy) 21 mg TD QAM [facility] Stop: 05/03/22 08:59 Last Admin: 04/03/22 09:04 Dose: 21 mg Documented by: Nicotine Polacrilex (Nicotine Polacrilex 2 Mg Gum) 1 piece MT PRN PRN PRN Reason: Smoking Cessation Stop: 05/02/22 18:32 Last Admin: 04/03/22 10:48 Dose: 1 piece Documented by: Nitrofurantoin Macrocrystals (Nitrofurantoin Monohydrate 100 Mg Cap) 100 mg PO BID [facility]; Protocol Stop: 04/07/22 20:59 Last Admin: 04/03/22 09:05 Dose: 100 mg Documented by: Olanzapine (Olanzapine 5 Mg Tablet) 5 mg PO HS PRN PRN Reason: Anxiety/Agitation Stop: 05/02/22 21:59 Last Admin: 04/02/22 20:47 Dose: 5 mg Documented by: Risperidone (Risperidone 0.5 Mg Tablet) 0.5 mg PO BID PRN PRN Reason: psychosis, agitation Stop: 05/02/22 13:48 Last Admin: 04/02/22 14:22 Dose: 0.5 mg Documented by: Sertraline HCl (Sertraline Hcl 50 Mg Tablet) [facility] Stop: 05/02/22 13:29 Last Admin: 04/03/22 09:05 Dose: 25 mg Documented by: Sodium Chloride (Sodium Chloride 0.65% Na Soln 45 Ml ([place])) 1 - 2 sprays NA PRN PRN PRN Reason: Nasal Dryness/Congestion Stop: 05/02/22 07:11 Thiamine HCl (Thiamine Hcl 100 Mg Tab) [facility] Stop: 05/02/22 10:59 Last Admin: 04/03/22 09:05 Dose: 100 mg Documented by: Trazodone HCl (Trazodone Hcl 50 Mg Tab) 50 mg PO HS PRN PRN Reason: insomnia Stop: 05/02/22 21:59 Last Admin: 04/02/22 22:32 Dose: 50 mg Documented by: Mental Health & Subst Abuse Tx Therapist Name of Therapist: None Upstairs Maid Name of Upstairs Maid: None Post Discharge Appointments Primary Care Physician Name Of Family Doctor: none
[2022-04-03] MEDS ORDERED: haloperidoL 5 MG TAB PO PRN (15:49)
[2022-04-03] MEDS: GABAPENTIN 600 MG TAB PO SCH ×2 (17:06→21:20)
[2022-04-03] MEDS: traZODone HCL 50 MG TAB PO PRN (21:19)
[2022-04-04] MEDS: THIAMINE HCL 100 MG TAB PO SCH (08:44)
[2022-04-04] MEDS: NITROFURANTOIN MONOHYDRATE 100 MG CAP PO SCH ×2 (08:45→20:52)
[2022-04-04] MEDS: FOLIC ACID 1 MG TAB PO SCH (08:45)
[2022-04-04] MEDS: GABAPENTIN 600 MG TAB PO SCH ×2 (08:45→15:45)
[2022-04-04] MEDS: NICOTINE 21 MG/24 HR TDSY TD SCH (08:45)
[2022-04-04] MEDS: SERTRALINE HCL 50 MG TABLET PO SCH (08:46)
[2022-04-04] MEDS: NICOTINE POLACRILEX 2 MG GUM MT PRN ×5 (09:57→21:36)
--- NOTE | 2022-04-04 10:04 | Psychiatric Progress Note ---
Date of Service April 04, 2022 Impression / Recommendations Impression The patient is a 36 year old man with a history of anxiety, depression, BPD with multiple prior suicide attempts (last 9 years ago) and polysubstance use disorder (methamphetamine, suboxone, alcohol) who was admitted for SI with plan and psychosis. Diagnostically consistent with MDD with anxious features and substance-induced mood symptoms and substance-induced psychosis given UDS is positive for methamphetamine (confirmation screening pending but hasn't been taking any medications and he confirms recent relapse). BPAD mixed episode or MDD with psychotic features very unlikely given already showing signs of ps ychosis resolution since ED presentation. No evidence for acute ian. The patient is deemed unstable and requires psychiatric hospitalization for diagnostic clarification, safety and stabilization, medication management and development of further coping skills. As per Dr. Alas above. 04/04/22: some improvement, no longer calling out in response to internal stimuli, etc. (1) Substance-induced psychotic disorder: (2) Acute UTI: (3) Opioid use disorder: (4) Alcohol use disorder, moderate, dependence: (5) Methamphetamine use disorder, mild: 04/04/22: continue regular use of prns. 04/03/22: Neurontin loading. AWSS procotol. Haldol 5 mg and Ativan 1 mg po q4 hr. Cogentin 1 mg q6 prn. MNPR. 04/02/22: [facility] on q15 min checks (behavioral with suicide precautions) for safety. The patient will participate in group, recreational, and milieu therapies and will be offered additional individual and family sessions as clinically appropriate. -AWSS with thiamine and folic acid -Monitor withdrawal using COWS (Clinical Opiate Withdrawal Scale). Clonidine: 0.1 mg po q6h prn (hold for SBP<100). Symptomatic treatment: dicyclomine 20mg q6h prn abdominal cramps, loperamide 2mg q6h prn diarrhea, ibuprofen 600 mg q6h prn pain, hydroxyzine 25mg q4h prn anxiety -Start sertraline 25 mg qd -Start trazodone 50mg qhs prn -Macrobid 100mg BID for UTI Inventory Assets Strengths: motivated to get help, relationship with father, working Needs: additional coping skills, substance use treatment, outpatient services Suicide Risk Level Suicide Risk Level: Moderate (q15 min suicide checks) Suicide Risk Level Comments: psychosis is improving, cooperative in unit milieu with improving restlessness, denies SI Risk Factors Assessment Male: Yes : Yes Do You Have Access To A Gun?: No Health Problems: No Mental Health Diagnoses: Yes Substance Use Disorders: Yes Previous Attempt: Yes Family History of Suicide: Yes Previous Psychiatric Hospitalization: Yes Hopelessness: No Protective Factors 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 Chief Complaint "[]". Review of Systems Sleep Information Total Hours of Sleep: 8.75 Meal Information Percent Meal Consumed - Breakfast: 100 Percent Meal Consumed - Lunch: 90 Percent Meal Consumed - Dinner: 80 Nutrition Comment: Pt ate dinner late. Subjective Subjective Patient was seen & assessed and interval progress reviewed with nursing and social work. Patient was experiencing less hallucinations and withdrawal symptoms yesterday pm. Physical Exam Psychiatric Orientation: alert and oriented x 3 Apperance: appropriately dressed and appropriately groomed Eye Contact: + fair eye contact Motor Behavior: steady gait and station Speech: normal rate/rhythm/volume of speech Affect: + constricted affect Mood: + anxious mood Thought Process: + concrete thought process Thought Content: reality based without delusions; no delusions Suicidal Thoughts: denies suicidal thoughts, denies suicidal plan and denies suicidal intent Homicidal Thoughts: denies homicidal thoughts Hallucinations: no auditory hallucinations and no visual hallucinations Cognition: attention grossly intact and language grossly intact Estimated Intelligence: consistent with education level Insight: + limited insight Judgement: + limited judgement Vital Signs (Past 24 Hours) Last Vital Signs Temp 36.9 C 04/04/22 06:06 Pulse 69 04/04/22 06:06 Resp 18 04/04/22 06:06 BP 120/72 04/04/22 06:06 Pulse Ox 98 04/03/22 17:02 Results & Data (U) Current Inpatient Medications Current Inpatient Medications: Current Inpatient Medications Acetaminophen (Acetaminophen 325 Mg Tab) 650 mg PO Q4H PRN PRN Reason: Headache or Minor Fever Stop: 06/19/22 07:11 Last Admin: 04/02/22 15:27 Dose: 650 mg Documented by: Al Hydrox/Mg Hydrox/Simethicone (Aluminum/Magnesium Susp 30 Ml Udc) 30 ml PO Q4H PRN PRN Reason: GI Upset Stop: 05/02/22 07:11 Last Admin: 04/03/22 10:48 Dose: 30 ml Documented by: Benztropine Mesylate (Benztropine Mesylate 1 Mg Tab) 1 mg PO Q6 PRN PRN Reason: dystonia/thick tongue Stop: 05/03/22 11:59 Bismuth Subsalicylate (Bismuth Subsalicylate Liqd 236 Ml) 15 ml PO PRN PRN PRN Reason: Loose Stool Stop: 05/02/22 07:11 Clonidine HCl (Clonidine Hcl 0.1 Mg Tab) 0.1 mg PO Q6H PRN PRN Reason: withdrawal Stop: 04/05/22 22:00 Dicyclomine HCl (Dicyclomine Hcl 20 Mg Tab) 20 mg PO Q6H PRN PRN Reason: abdominal cramps Stop: 05/02/22 13:29 Folic Acid (Folic Acid 1 Mg Tab) 1 mg PO QAM AMANDA Stop: 05/02/22 10:59 Last Admin: 04/04/22 08:45 Dose: 1 mg Documented by: Gabapentin (Gabapentin 600 Mg Tab) 600 mg PO Q8H [facility] Stop: 04/05/22 00:01 Last Admin: 04/04/22 08:45 Dose: 600 mg Documented by: Gabapentin (Gabapentin 600 Mg Tab) 600 mg PO Q12H [facility]AN[facility] Stop: 04/06/22 00:01 Gabapentin (Gabapentin 600 Mg Tab) 600 mg PO Q24H [facility] Stop: 04/07/22 00:01 Haloperidol (Haloperidol 5 Mg Tab) 5 mg PO Q4 PRN PRN Reason: Anxiety Stop: 05/03/22 15:48 Hydroxyzine HCl (Hydroxyzine Hcl 25 Mg Tab) 50 mg PO HSZ PRN PRN Reason: Insomnia Stop: 05/02/22 07:11 Hydroxyzine HCl (Hydroxyzine Hcl 25 Mg Tab) 25 mg PO Q4H PRN PRN Reason: Anxiety Stop: 05/02/22 07:11 Last Admin: 04/02/22 20:47 Dose: 25 mg Documented by: Ibuprofen (Ibuprofen 600 Mg Tab) 600 mg PO Q6H PRN PRN Reason: Pain Stop: 05/02/22 13:16 Last Admin: 04/02/22 14:58 Dose: 600 mg Documented by: Loperamide HCl (Loperamide Hcl 2 Mg Cap) 2 mg PO Q6H PRN PRN Reason: Diarrhea Stop: 05/02/22 13:16 Lorazepam (Lorazepam 1 Mg Tab) 1 - 3 mg PO UD PRN; Protocol PRN Reason: EtoH Withdrawal AWSS 6-10+ Stop: 05/02/22 10:47 Last Admin: 04/03/22 10:48 Dose: 1 mg Documented by: Lorazepam (Lorazepam 1 Mg Tab) 1 mg PO Q4 PRN PRN Reason: Anxiety/Agitation Stop: 05/03/22 09:23 Magnesium Hydroxide (Magnesium Hydroxide Susp 30 Ml Udc) 30 ml PO DAILY PRN PRN Reason: Constipation Stop: 05/02/22 07:11 Miscellaneous (Remove Nicoderm Patch) 1 ea N/A DAILY@0859 [facility] Stop: 05/03/22 08:58 Last Admin: 04/04/22 08:45 Dose: 1 ea Documented by: Nicotine (Nicotine 21 Mg/24 Hr Tdsy) 21 mg TD QAM [facility] Stop: 05/03/22 08:59 Last Admin: 04/04/22 08:45 Dose: 21 mg Documented by: Nicotine Polacrilex (Nicotine Polacrilex 2 Mg Gum) 1 piece MT PRN PRN PRN Reason: Smoking Cessation Stop: 05/02/22 18:32 Last Admin: 04/04/22 09:57 Dose: 1 piece Documented by: Nitrofurantoin Macrocrystals (Nitrofurantoin Monohydrate 100 Mg Cap) 100 mg PO BID [facility]; Protocol Stop: 04/07/22 20:59 Last Admin: 04/04/22 08:45 Dose: 100 mg Documented by: Olanzapine (Olanzapine 5 Mg Tablet) 5 mg PO HS PRN PRN Reason: Anxiety/Agitation Stop: 05/02/22 21:59 Last Admin: 04/02/22 20:47 Dose: 5 mg Documented by: Risperidone (Risperidone 0.5 Mg Tablet) 0.5 mg PO BID PRN PRN Reason: psychosis, agitation Stop: 05/02/22 13:48 Last Admin: 04/02/22 14:22 Dose: 0.5 mg Documented by: Sertraline HCl (Sertraline Hcl 50 Mg Tablet) 25 mg PO QAM [facility] Stop: 05/02/22 13:29 Last Admin: 04/04/22 08:46 Dose: 25 mg Documented by: Sodium Chloride (Sodium Chloride 0.65% Na Soln 45 Ml ([place])) 1 - 2 sprays NA PRN PRN PRN Reason: Nasal Dryness/Congestion Stop: 05/02/22 07:11 Thiamine HCl (Thiamine Hcl 100 Mg Tab) [facility] Stop: 05/02/22 10:59 Last Admin: 04/04/22 08:44 Dose: 100 mg Documented by: Trazodone HCl (Trazodone Hcl 50 Mg Tab) 50 mg PO HS PRN PRN Reason: insomnia Stop: 05/02/22 21:59 Last Admin: 04/03/22 21:19 Dose: 50 mg Documented by: Mental Health & Subst Abuse Tx Therapist Name of Therapist: None [employer]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
[2022-04-04] MEDS ORDERED: LORazepam 1 MG TAB PO PRN (11:06)
[2022-04-04] MEDS: hydrOXYzine HCl 25 MG TAB PO PRN ×2 (11:10→18:15)
[2022-04-04] MEDS: traZODone HCL 50 MG TAB PO PRN (21:13)
[2022-04-05] MEDS: GABAPENTIN 600 MG TAB PO SCH ×2 (00:58→12:19)
[2022-04-05] MEDS: FOLIC ACID 1 MG TAB PO SCH (08:43)
[2022-04-05] MEDS: NICOTINE 21 MG/24 HR TDSY TD SCH (08:43)
[2022-04-05] MEDS: SERTRALINE HCL 50 MG TABLET PO SCH (08:44)
[2022-04-05] MEDS: NITROFURANTOIN MONOHYDRATE 100 MG CAP PO SCH ×2 (08:44→21:20)
[2022-04-05] MEDS: THIAMINE HCL 100 MG TAB PO SCH (08:45)
[2022-04-05] MEDS: NICOTINE POLACRILEX 2 MG GUM MT PRN ×6 (09:00→21:28)
[2022-04-05] MEDS ORDERED: haloperidoL 5 MG TAB PO PRN (10:09)
[2022-04-05] MEDS ORDERED: LORazepam 0.5 MG TAB PO PRN (10:09)
--- NOTE | 2022-04-05 12:39 | Psychiatric Progress Note ---
Date of Service April 05, 2022 Impression / Recommendations Impression 36 yo male with substance induced psychosis. Resolving with prns/withdrawal management (1) Substance-induced psychotic disorder: (2) Acute UTI: (3) Opioid use disorder: (4) Alcohol use disorder, moderate, dependence: (5) Methamphetamine use disorder, mild: 04/05/22: Reviewed recommendation to abstain from drugs and EToh and that even substance induced psychosis patients often benefit from standing antipsychotic/mood stabilizer as an option for several weeks following discharge. He does not feel this is necessary and desires to continue Neurontin taper and other standing meds here. He is agreeable to aftercare planning. 04/04/22: continue regular use of prns. 04/03/22: Neurontin loading. AWSS procotol. Haldol 5 mg and Ativan 1 mg po q4 hr. Cogentin 1 mg q6 prn. MNPR. 04/02/22: The patient was admitted to the [facility] ([facility]) on q15 min checks (behavioral with suicide precautions) for safety. The patient will participate in group, recreational, and milieu therapies and will be offered additional individual and family sessions as clinically appropriate. -AWSS with thiamine and folic acid -Monitor withdrawal using COWS (Clinical Opiate Withdrawal Scale). Clonidine: 0.1 mg po q6h prn (hold for SBP<100). Symptomatic treatment: dicyclomine 20mg q6h prn abdominal cramps, loperamide 2mg q6h prn diarrhea, ibuprofen 600 mg q6h prn pain, hydroxyzine 25mg q4h prn anxiety -Start sertraline 25 mg qd -Start trazodone 50mg qhs prn -Macrobid 100mg BID for UTI Suicide Risk Level Suicide Risk Level: Moderate (q15 min suicide checks) Risk Factors Assessment Male: Yes : Yes Do You Have Access To A Gun?: No Health Problems: No Mental Health Diagnoses: Yes Substance Use Disorders: Yes Previous Attempt: Yes Family History of Suicide: Yes Previous Psychiatric Hospitalization: Yes Hopelessness: No Protective Factors 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 Chief Complaint "I'm feeling better" Review of Systems Sleep Information Total Hours of Sleep: 6.5 Sleep Comments: pt on q-15 minute checks Meal Information Percent Meal Consumed - Breakfast: 100 Percent Meal Consumed - Lunch: 100 Percent Meal Consumed - Dinner: 100 Subjective Subjective Patient was seen & assessed and interval progress reviewed with treatment team. Patient has been cooperative with unit routines and interacting appropriate with other patients. His mood is "stable" and was singing country songs, etc. Much less med focus and minimal prns yesterday but did have some DFA and requested Vistaril and trazodone prns. He is anxious to return to work and discussed transportation and housing options as part of safety planning with SW. Idania lombardi yesterday. Physical Exam Psychiatric Orientation: alert and oriented x 3 Apperance: appropriately dressed and appropriately groomed Eye Contact: good eye contact Motor Behavior: no abnormal motor movements Speech: normal rate/rhythm/volume of speech Affect: euthymic affect Mood: no depressed mood Thought Process: goal directed thought process Thought Content: reality based without delusions Suicidal Thoughts: denies suicidal thoughts Homicidal Thoughts: denies homicidal thoughts Hallucinations: no auditory hallucinations and no visual hallucinations Cognition: attention grossly intact and language grossly intact Estimated Intelligence: consistent with education level Insight: + limited insight Judgement: + limited judgement Vital Signs (Past 24 Hours) Last Vital Signs Temp 36.6 C 04/05/22 06:42 Pulse 72 04/05/22 06:42 Resp 16 04/05/22 06:42 BP 117/75 04/05/22 06:42 Pulse Ox 95 04/04/22 18:00 Results & Data ([facility]) Current Inpatient Medications Current Inpatient Medications: Current Inpatient Medications Acetaminophen (Acetaminophen 325 Mg Tab) 650 mg PO Q4H PRN PRN Reason: Headache or Minor Fever Stop: 05/02/22 07:11 Last Admin: 04/02/22 15:27 Dose: 650 mg Documented by: Al Hydrox/Mg Hydrox/Simethicone (Aluminum/Magnesium Susp 30 Ml Udc) 30 ml PO Q4H PRN PRN Reason: GI Upset Stop: 05/02/22 07:11 Last Admin: 04/03/22 10:48 Dose: 30 ml Documented by: Benztropine Mesylate (Benztropine Mesylate 1 Mg Tab) 1 mg PO Q6 PRN PRN Reason: dystonia/thick tongue Stop: 05/03/22 11:59 Bismuth Subsalicylate (Bismuth Subsalicylate Liqd 236 Ml) 15 ml PO PRN PRN PRN Reason: Loose Stool Stop: 05/02/22 07:11 Clonidine HCl (Clonidine Hcl 0.1 Mg Tab) 0.1 mg PO Q6H PRN PRN Reason: withdrawal Stop: 04/05/22 22:00 Dicyclomine HCl (Dicyclomine Hcl 20 Mg Tab) 20 mg PO Q6H PRN PRN Reason: abdominal cramps Stop: 05/02/22 13:29 Folic Acid (Folic Acid 1 Mg Tab) 1 mg PO QAM AMANDA Stop: 05/02/22 10:59 Last Admin: 04/05/22 08:43 Dose: 1 mg Documented by: Gabapentin (Gabapentin 600 Mg Tab) 600 mg PO Q12H AMANDA Stop: 04/06/22 00:01 Last Admin: 04/05/22 12:19 Dose: 600 mg Documented by: Gabapentin (Gabapentin 600 Mg Tab) 600 mg PO Q24H AMANDA Stop: 04/07/22 00:01 Haloperidol (Haloperidol 5 Mg Tab) 5 mg PO Q6 PRN PRN Reason: Anxiety Stop: 05/03/22 15:48 Hydroxyzine HCl (Hydroxyzine Hcl 25 Mg Tab) 50 mg PO HSZ PRN PRN Reason: Insomnia Stop: 05/02/22 07:11 Hydroxyzine HCl (Hydroxyzine Hcl 25 Mg Tab) 25 mg PO Q4H PRN PRN Reason: Anxiety Stop: 05/02/22 07:11 Last Admin: 04/04/22 18:15 Dose: 25 mg Documented by: Ibuprofen (Ibuprofen 600 Mg Tab) 600 mg PO Q6H PRN PRN Reason: Pain Stop: 05/02/22 13:16 Last Admin: 04/02/22 14:58 Dose: 600 mg Documented by: Loperamide HCl (Loperamide Hcl 2 Mg Cap) 2 mg PO Q6H PRN PRN Reason: Diarrhea Stop: 05/02/22 13:16 Lorazepam (Lorazepam 1 Mg Tab) 1 - 3 mg PO UD PRN; Protocol PRN Reason: EtoH Withdrawal AWSS 6-10+ Stop: 05/02/22 10:47 Last Admin: 04/03/22 10:48 Dose: 1 mg Documented by: Lorazepam (Lorazepam 0.5 Mg Tab) 0.5 mg PO Q8 PRN PRN Reason: Anxiety/Agitation Stop: 05/04/22 11:05 Magnesium Hydroxide (Magnesium Hydroxide Susp 30 Ml Udc) 30 ml PO DAILY PRN PRN Reason: Constipation Stop: 05/02/22 07:11 Miscellaneous (Remove Nicoderm Patch) 1 ea N/A DAILY@0859 [facility] Stop: 05/03/22 08:58 Last Admin: 04/05/22 08:44 Dose: 1 ea Documented by: Nicotine (Nicotine 21 Mg/24 Hr Tdsy) 21 mg TD QAM [facility] Stop: 05/03/22 08:59 Last Admin: 04/05/22 08:43 Dose: 21 mg Documented by: Nicotine Polacrilex (Nicotine Polacrilex 2 Mg Gum) 1 piece MT PRN PRN PRN Reason: Smoking Cessation Stop: 05/02/22 18:32 Last Admin: 04/05/22 10:42 Dose: 1 piece Documented by: Nitrofurantoin Macrocrystals (Nitrofurantoin Monohydrate 100 Mg Cap) 100 mg PO BID [facility]; Protocol Stop: 04/07/22 20:59 Last Admin: 04/05/22 08:44 Dose: 100 mg Documented by: Sertraline HCl (Sertraline Hcl 50 Mg Tablet) [facility] Stop: 05/02/22 13:29 Last Admin: 04/05/22 08:44 Dose: 25 mg Documented by: Sodium Chloride (Sodium Chloride 0.65% Na Soln 45 Ml ([place])) 1 - 2 sprays NA PRN PRN PRN Reason: Nasal Dryness/Congestion Stop: 05/02/22 07:11 Thiamine HCl (Thiamine Hcl 100 Mg Tab) [facility] Stop: 05/02/22 10:59 Last Admin: 04/05/22 08:45 Dose: 100 mg Documented by: Trazodone HCl (Trazodone Hcl 50 Mg Tab) 50 mg PO HS [facility] Stop: 05/05/22 21:59 Mental Health & Subst Abuse Tx Psychiatrist Name of Psychiatrist: [facility] Psychiatrist's Time of Appointment with Psychiatrist: Referral will be made after [facility] is switched from [facility] to [place] [facility] Comment: They can help you do so Therapist Name of Therapist: Stephanie Aparicio Therapist's Date of Therapist Appointment: 04/07/22 Time of Therapist Appointment: 9:30 a.m. Therapy Appointment Comment: [address], [address], [place] Placement Director Name of Placement Director: Pt declined need Post Discharge Appointments Primary Care Physician Name Of Family Doctor: Pt declined need Other #1: Name of Aftercare Appointment: Potential Housing Option - [place] Phone Number of Aftercare Appointment: Time of Aftercare Appointment: Please call to schedule a tour and complete an application Aftercare Appointment Comment: [address], [place] [id number] #2: Name of Aftercare Appointment: Transportation Option - [facility] Phone Number of Aftercare Appointment: Aftercare Appointment Comment: Call to schedule on-demand rides within [place] Contact Information Discharge Discharge Address: [facility]
[2022-04-05] MEDS ORDERED: traZODone HCL 50 MG TAB PO SCH (22:00)
[2022-04-06] MEDS: GABAPENTIN 600 MG TAB PO SCH (00:06)
[2022-04-06] MEDS: NITROFURANTOIN MONOHYDRATE 100 MG CAP PO SCH (08:19)
[2022-04-06] MEDS: SERTRALINE HCL 50 MG TABLET PO SCH (08:19)
[2022-04-06] MEDS: FOLIC ACID 1 MG TAB PO SCH (08:19)
[2022-04-06] MEDS: NICOTINE 21 MG/24 HR TDSY TD SCH (08:19)
[2022-04-06] MEDS: THIAMINE HCL 100 MG TAB PO SCH (08:20)
[2022-04-06] MEDS: NICOTINE POLACRILEX 2 MG GUM MT PRN ×2 (09:00→09:02)
--- NOTE | 2022-04-06 09:42 | Discharge Summary ---
Date of Service April 06, 2022 History of Present Illness As per Dr. Alas on admission: Yoni presents for psychiatric admission for worsening anxiety, intensifying SI with a plan to hang himself and new auditory hallucinations in the context of multiple psychosocial stressors including homelessness, his father being hospitalized for the last month, and relapse of methamphetamine use. He called 911 was brought to the ED. He received treatment in the ED for a UTI and for dehydration and sunburn. He relapsed on methamphetamine two days ago, after about 4-5 months of sobriety, and takes suboxone, 16mg, that he buys recreationally from a friend as frequently as he can get it (has not used any other opioids or heroin in >1 year) but UDS was also positive for MDMA. He states this could have been mixed with the methamphetamine that he took. He views alcohol as his biggest substance use issue especially since it causes him to end up using other substances and to make poor decisions. He drinks on average a 6pack of beer and often up to 1/5 of whiskey most nights. He is currently living in a motel and is on pre-trial probation for a DUI. Last night on arrival to the ED he reported auditory hallucinations of voices of ghosts and thought he had superhuman hearing and was responding to internal stimuli. Today he denies any auditory hallucinations and agrees that this can occur when he uses substances but is otherwise atypical for him. States he can communicate without words with his grandmother, as he believes she can sense his emotions, who a few years ago and with whom he had been very close. No other history of psychosis in the past. He describes feeling more depressed but struggles to describe this and how it impacts him though can note sleep and appetite changes and increased irritability with low mood. He denies hopelessness, helplessness, anhedonia. Feels his biggest concern recently has been worsening anxiety with heart racing and increased worrying as well as intensifying SI over the last week. Identifies family as a significant deterrent and the reason he wanted to get help. Today he continues to feel anxious but feels the SI has "volume is down a bit" and denies any plans nor intent in the hospital setting. Psychiatric ROS notable for denial of current or past symptoms of ian (had decreased sleep during times when using substances but never during periods of sobriety), nor psychosis outside of periods of active substance use, nor aggression nor self-harm nor trauma/PTSD. Physical Exam Psychiatric See admission H&P and DOD assessment. Vital Signs (Past 24 Hours) Last Vital Signs Temp 36.9 C 04/06/22 08:06 Pulse 75 04/06/22 08:06 Resp 16 04/06/22 08:06 BP 135/81 04/06/22 08:06 Pulse Ox 93 04/05/22 14:00 Principal Diagnosis substance induced psychotic disorder Psychiatric Data See daily stay summary. In short, safety was maintained and the patient was cooperative as able with care, particularly as his hallucinations and restlessness improved. He was started on a trial of low dose Zoloft and sleep was improved with trazodone. He experienced some withdrawal symptoms from alcohol and remained on AWSS protocol with prn Ativan. His symptoms improved dramatically after several doses of Haldol and Ativan and neurontin loading. He denied hallucinations for >2 days prior to discharge. A safety plan was completed prior to discharge. He declined to continue antipsychotic medication. He did have some diarrhea just before discharge which is likely related to his antibiotics as no persistent withdrawal symptoms. He has 3 doses left and will see a PCP if persists. He remained focussed on resuming Subutex and reviewed with him that local clinics will not provide without adequate ID. He was given assistance/resources in how to get a new ID and more affordable housing options. He was educated that [facility] will provide counseling and over see psych meds but is not the level of MAT program he is requesting and that he can contact the resources given to him when he has his ID in place. He voiced understanding and has a co-worker's support in transportation to appointments as well as education about [facility] services. Day of Discharge Assessment Today the patient voices readiness for discharge. They note improvement in mood and deny thoughts to harm self or others. Thoughts remain organized and they are improved from admission. There is no evidence of psychosis. They agree to take mediations as prescribed and keep follow-up appointments. They are stable for discharge to outpatient level of care. Transition of Care Transition Of Care Record: was reviewed with the patient Advance Directives Advance Directives Information Provided: Yes Advance Directives: No Mental Health Advance Directive: No Advance Directives on File: No Living Will: No Power of Endoscopy Rn: No Advance Directives Reason:: Declines as Mental Health Visit. 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 He did not have any family/friends directly involved in his care here. Total Time Total Time Spent: Greater Than 30 Minutes Discharge Data Lab Results 04/01/22 04/01/22 04/01/22 23:56 23:56 23:56 WBC RBC Hgb Hct MCV MCH MCHC RDW Std Deviation RDW Coeff of Libby Plt Count MPV Immature Gran % (Auto) Neut % (Auto) Lymph % (Auto) [place] % (Auto) Eos % (Auto) Baso % (Auto) Neut # (Auto) Lymph # (Auto) [place] # (Auto) Eos # (Auto) Baso # (Auto) Immature Gran # (Auto) Sodium Potassium Chloride Carbon Dioxide Anion Gap BUN Creatinine Est Cr Clr Drug Dosing Est GFR ( Amer) Est GFR (Non-Af Amer) BUN/Creatinine Ratio Glucose Calcium Total Bilirubin AST ALT Alkaline Phosphatase Total Protein Albumin Globulin Albumin/Globulin Ratio TSH Urine Color Dark Yellow Urine Appearance Turbid A Urine pH 5.0 Ur Specific [place] 1.031 H Urine Protein 2+ H Urine Glucose (UA) Negative Urine Ketones 1+ H Urine Blood Negative Urine Nitrite Positive A Urine Bilirubin 2+ H Urine Urobilinogen Negative Ur Leukocyte Esterase Trace H Urine WBC (Auto) 5-10 H Urine RBC (Auto) 10-30 H U Hyaline Cast (Auto) >30 H U Epithel Cells (Auto) >30 H Urine Bacteria (Auto) 1+ H Ur Renal Epithelial Cell Not Reportable Urine Crystals Not Reportable Calcium Oxalate Crystal Present A Salicylates Urine Opiates Screen Neg Ur Methadone, Qual Neg Acetaminophen Urine Barbiturates Neg Ur Phencyclidine (PCP) Neg U Amphetamin/Meth Scrn Pos H MDMA (Ecstasy) Screen Pos H U Benzodiazepines Scrn Neg Ur Cocaine Metabolite Neg U Marijuana (THC) Screen Pos H Ethyl Alcohol mg/dL SARS-CoV-2, RNA, NAAT NEGATIVE 04/02/22 04/02/22 04/02/22 00:48 00:48 00:48 WBC 8.05 RBC 5.15 Hgb 17.3 Hct 48.0 MCV 93.2 MCH 33.6 MCHC 36.0 RDW Std Deviation 49.2 H RDW Coeff of Libby 14.5 Plt Count 244 MPV 9.8 Immature Gran % (Auto) 0.1 Neut % (Auto) 75.9 Lymph % (Auto) 12.8 [place] % (Auto) 11.2 Eos % (Auto) 0.0 Baso % (Auto) 0.0 Neut # (Auto) 6.11 Lymph # (Auto) 1.03 L [place] # (Auto) 0.90 H Eos # (Auto) 0.00 Baso # (Auto) 0.00 Immature Gran # (Auto) 0.01 Sodium 137 Potassium 3.6 Chloride 97 L Carbon Dioxide 28 Anion Gap 12 H BUN 17 Creatinine 1.56 H Est Cr Clr Drug Dosing 63.9 Est GFR ( Amer) 65.7 Est GFR (Non-Af Amer) 56.7 BUN/Creatinine Ratio 10.9 Glucose 95 Calcium 9.9 Total Bilirubin 1.0 AST 53 H ALT 27 Alkaline Phosphatase 96 Total Protein 8.9 H Albumin 5.1 H Globulin 3.8 Albumin/Globulin Ratio 1.3 TSH 2.999 Urine Color Urine Appearance Urine pH Ur Specific [place] Urine Protein Urine Glucose (UA) Urine Ketones Urine Blood Urine Nitrite Urine Bilirubin Urine Urobilinogen Ur Leukocyte Esterase Urine WBC (Auto) Urine RBC (Auto) U Hyaline Cast (Auto) U Epithel Cells (Auto) Urine Bacteria (Auto) Ur Renal Epithelial Cell Urine Crystals Calcium Oxalate Crystal Salicylates Urine Opiates Screen Ur Methadone, Qual Acetaminophen Urine Barbiturates Ur Phencyclidine (PCP) U Amphetamin/Meth Scrn MDMA (Ecstasy) Screen U Benzodiazepines Scrn Ur Cocaine Metabolite U Marijuana (THC) Screen Ethyl Alcohol mg/dL SARS-CoV-2, RNA, NAAT 04/02/22 04/02/22 00:48 00:48 WBC RBC Hgb Hct MCV MCH MCHC RDW Std Deviation RDW Coeff of Libby Plt Count MPV Immature Gran % (Auto) Neut % (Auto) Lymph % (Auto) [place] % (Auto) Eos % (Auto) Baso % (Auto) Neut # (Auto) Lymph # (Auto) [place] # (Auto) Eos # (Auto) Baso # (Auto) Immature Gran # (Auto) Sodium Potassium Chloride Carbon Dioxide Anion Gap BUN Creatinine Est Cr Clr Drug Dosing Est GFR ( Amer) Est GFR (Non-Af Amer) BUN/Creatinine Ratio Glucose Calcium Total Bilirubin AST ALT Alkaline Phosphatase Total Protein Albumin Globulin Albumin/Globulin Ratio TSH Urine Color Urine Appearance Urine pH Ur Specific [place] Urine Protein Urine Glucose (UA) Urine Ketones Urine Blood Urine Nitrite Urine Bilirubin Urine Urobilinogen Ur Leukocyte Esterase Urine WBC (Auto) Urine RBC (Auto) U Hyaline Cast (Auto) U Epithel Cells (Auto) Urine Bacteria (Auto) Ur Renal Epithelial Cell Urine Crystals Calcium Oxalate Crystal Salicylates < 3.0 L Urine Opiates Screen Ur Methadone, Qual Acetaminophen < 3 L Urine Barbiturates Ur Phencyclidine (PCP) U Amphetamin/Meth Scrn MDMA (Ecstasy) Screen U Benzodiazepines Scrn Ur Cocaine Metabolite U Marijuana (THC) Screen Ethyl Alcohol mg/dL < 10.0 SARS-CoV-2, RNA, NAAT Hospital Course (1) Substance-induced psychotic disorder: (2) Acute UTI: (3) Opioid use disorder: (4) Alcohol use disorder, moderate, dependence: (5) Methamphetamine use disorder, mild: 04/05/22: Reviewed recommendation to abstain from drugs and EToh and that even substance induced psychosis patients often benefit from standing antipsychotic/mood stabilizer as an option for several weeks following discharge. He does not feel this is necessary and desires to continue Neurontin taper and other standing meds here. He is agreeable to aftercare planning. 04/04/22: continue regular use of prns. 04/03/22: Neurontin loading. AWSS procotol. Haldol 5 mg and Ativan 1 mg po q4 hr. Cogentin 1 mg q6 prn. MNPR. 04/02/22: The patient was admitted to the [facility] ([facility] mental health unit) on q15 min checks (behavioral with suicide precautions) for safety. The patient will participate in group, recreational, and milieu therapies and will be offered additional individual and family sessions as clinically appropriate. -AWSS with thiamine and folic acid -Monitor withdrawal using COWS (Clinical Opiate Withdrawal Scale). Clonidine: 0.1 mg po q6h prn (hold for SBP<100). Symptomatic treatment: dicyclomine 20mg q6h prn abdominal cramps, loperamide 2mg q6h prn diarrhea, ibuprofen 600 mg q6h prn pain, hydroxyzine 25mg q4h prn anxiety -Start sertraline 25 mg qd -Start trazodone 50mg qhs prn -Macrobid 100mg BID for UTI Mental Health & Subst Abuse Tx Psychiatrist Name of Psychiatrist: Stephanie Davis Psychiatrist's Time of Appointment with Psychiatrist: Referral will be made after MA is switched from [facility] to [facility] Psychiatric Appointment Comment: They can help you do so Therapist Name of Therapist: Stephanie Aparicio Therapist's Date of Therapist Appointment: 04/07/22 Time of Therapist Appointment: 9:30 a.m. Therapy Appointment Comment: [address], [address], [place] Diabetes Territory Manager Name of Diabetes Territory Manager: Pt declined need Post Discharge Appointments Primary Care Physician Name Of Family Doctor: Pt declined need Smoking Cessation Counseling Tobacco Cessation Medication Prescribed at Discharge: Offered & Pt Refused Other #1: Name of Aftercare Appointment: Potential Housing Option - [facility] Phone Number of Aftercare Appointment: Time of Aftercare Appointment: Please call to schedule a tour and complete an application Aftercare Appointment Comment: [facility] [address], [place] [id number] #2: Name of Aftercare Appointment: Transportation Option - [facility] Phone Number of Aftercare Appointment: Aftercare Appointment Comment: Call to schedule on-demand rides within [facility] #3: Name of Aftercare Appointment: [facility] Phone Number of Aftercare Appointment: [phone] Time of Aftercare Appointment: Call to schedule transportation for medical appointments as/if needed Aftercare Appointment Comment: They need 48 hours notice #4: Name of Aftercare Appointment: [place] [facility] Phone Number of Aftercare Appointment: Time of Aftercare Appointment: Call to schedule appointment to discuss Suboxone Aftercare Appointment Comment: [address], [place] [address] Contact Information Discharge Discharge Address: [address] Discharge Plan Discharge Items Patient Disposition: Home - Self-Care Reason For Visit: MOOD DISORDER Discharge Diagnosis: substance induced psychotic disorder Activity: Resume your previous activity Non-emergency contact: Primary Care Provider, Psychiatrist and Therapist Call non-emergency contact if: you have any medication questions and your symptoms worsen Follow-up/Referrals: PCP,NO [Primary Care Provider] - Diet: Regular Addtl Attending Provider Instructions: SPECIAL CARE INSTRUCTIONS: 1. Follow through with your scheduled aftercare appointments. If unable to keep an appointment, please call to reschedule. 2. Take your medication only as prescribed. Medication should not be changed or stopped without the approval of your doctor. In the event of worsening symptoms or concerns about side effects, contact your doctor immediately. 3. Utilize new healthy coping skills, anger management skills, and stress management skills learned during your hospitalization. Journal feelings and process them with a support person. Identify stressors or situations that may result in relapse, deterioration or inappropriate behaviors and develop a plan to deal with those issues. 4. If your coping skills are ineffective and you are in crisis, contact your outpatient providers for direction. If unable to reach your providers, please call the [facility] CRISIS LINE AT , go to the [facility] walk-in center at [address], [address], [place], or go to the closest Emergency Room. 5. Avoid alcohol and un-prescribed drugs. 6. You have been provided with the Mental Health Advance Directives Pamphlet for your review. 7. Your condition is stable for discharge to outpatient level of care, but recovery is an ongoing process. Ifthoughts to harm yourself or others return, follow the safety plan developed during your stay. Planning for a safe return home includes securing weapons. Our treatment team recommends weaponsbe removed from the home until your outpatient provider reassesses your progress. In rare cases where the items themselvescannot be removed, guns and ammunitionshould be secured separatelyand keys stored by a reliable personoutside of the home. If you were admitted on an involuntary commitment, the police or other legal authorities may be involved in this process. AFTERCARE APPOINTMENTS: * Please call your insurance company prior to your scheduled appointment to confirm your aftercare providers are covered. Take your insurance information to your appointments. WHO TO CALL AND WHEN: Medical Emergencies: For questions or emergencies related to your hospital stay, please contact the Inpatient Behavioral Health Unit at [phone]. A plating machine operator is on-call 06/06 for the Behavioral Health Unit for emergencies At any time you feel your situation is an emergency, you may also call 911 immediately. Pending Studies at Discharge: No Stand-Alone Forms: My [facility] [employer], Smoking Cessation Medications and DC Order Prescriptions: New trazodone 50 mg Tablet 50 mg PO HS 30 Days Qty: 30 RF: 0 sertraline 50 mg Tablet 25 mg PO QAM 30 Days Qty: 15 RF: 0 nitrofurantoin monohyd/m-cryst 100 mg Capsule 100 mg PO BID 1 Days Qty: 3 RF: 0 Discharge Orders: Discharge Order (Routine); Ordered 04/06/22 Ordered By: Shannon Leger Admission Data Admit Date/Time: 04/02/22 03:19 Attending Provider: Shannon Leger Admit Provider: Aure Alas Primary Care Provider: PCP,NO Other Interventions: Discharge Summary Assessment (RN) Last Done: 04/06/22 10:26 PSY Interdisciplinary Discharge Planning Last Done: 04/06/22 10:26 Coding Level of Care Code 51609 D/C day mgmt > 30 min Diagnoses Substance-induced psychotic disorder F19.959 Acute UTI N39.0 Opioid use disorder F11.90 Alcohol use disorder, moderate, dependence F10.20 Methamphetamine use disorder, mild F15.10
[2022-04-07] MEDS ORDERED: GABAPENTIN 600 MG TAB PO SCH
[2022-04-07 10:46] LABS: Amphetamine Urine, Confirm >15000 ng/mL (<250); MDA negative; MDEA negative; MDMA (Ecstasy) Urine, Confirm negative; Marijuana Quant, GCMS Urine 914 ng/mL (<5); Methamphetamine, Ur Confirm >15000 ng/mL (<250)
== END 2022-04-06 11:02 | disposition home or self-care (01) | DRG 897 ==
LOC: ED 23:45 → SUATTDRO 04-02 03:19 → 3S 04-02 03:19